=== PATIENT | female | born 1950 | race Caucasian/White ===

== ENCOUNTER 2024-10-06 13:18 | Emergency (ER) | payer MEDICARE ==
[~2024-10-06] VITALS: Ht 172.7 cm; Wt 56.7 kg
[2024-10-06 13:36] VITALS: BP 88/59; TEMP 97.9
[2024-10-06] MEDS ORDERED: oxyCODONE/APAP (5/325 MG) 1 UDTAB TABLET ONE (15:04)
[2024-10-06] MEDS: oxyCODONE/APAP (5/325 MG) 1 UDTAB TABLET PO ONE (15:10)
[2024-10-06 16:17] VITALS: O2SAT 96
== END 2024-10-06 16:18 | disposition home or self-care (01) ==
LOC: ER 13:35
DX: S92.011A Displaced fracture of body of right calcaneus, initial encounter for closed fracture (principal); E11.9 Type 2 diabetes mellitus without complications; Z79.4 Long term (current) use of insulin; Z88.1 Allergy status to other antibiotic agents; Z96.641 Presence of right artificial hip joint; W06.XXXA Fall from bed, initial encounter; Y93.89 Activity, other specified; Y92.89 Other specified places as the place of occurrence of the external cause; Y99.8 Other external cause status
CPT/HCPCS: 73502; 73552; 73610-TC; 73630-TC; 93971-TC